=== PATIENT | male | born 1980 | race American Indian/Alaskan Native ===

== ENCOUNTER 2016-08-07 01:37 | Emergency (ER) | payer SELFPAY ==
[2016-08-07] MEDS ORDERED: CATAPRES ONE ×2 (02:22→05:39)
[2016-08-07] MEDS ORDERED: CATAPRES PO ONE ×2 (02:28→05:45)
[2016-08-07 03:19] LABS: Basophils % (Auto) 0.8 % (0.0-1.8); Eosinophils % (Auto) 0.7 % (0.0-4.3); Hematocrit 42.6 % (35.5-45.6); Hemoglobin 14.3 gm/dl (11.8-15.2); Mean Corpuscular HGB Conc 34 % (32-34); Mean Corpuscular Hemoglobin 33 pg (28-32); Mean Corpuscular Volume 97 fl (84-94); Platelet Count 259 K/mm3 (140-440); Red Blood Count 4.38 M/mm3 (3.65-5.03); Red Cell Distribution Width 12.5 % (13.2-15.2); White Blood Count 6.1 K/mm3 (4.5-11.0)
[2016-08-07 03:29] LABS: INR 1.02 (0.87-1.13)
[2016-08-07 03:30] LABS: Partial Thromboplastin Time 30.2 Sec. (24.2-36.6)
[2016-08-07 03:36] LABS: Anion Gap 19 mmol/L; Blood Urea Nitrogen 15 mg/dL (9-20); Calcium 9.1 mg/dL (8.4-10.2); Carbon Dioxide 24 mmol/L (22-30); Chloride 101.7 mmol/L (98-107); Glucose 127 mg/dL (75-100); Sodium 142 mmol/L (137-145)
[2016-08-07 03:51] LABS: Potassium 2.9 mmol/L (3.6-5.0)
[2016-08-07 05:32] VITALS: BP 186/128
--- NOTE | 2016-08-07 19:40 | ED Elopement Review ---
ED Pt Elopement review - Results review Lab results: Laboratory Tests 08/07/16 08/07/16 08/07/16 02:47 02:47 02:47 WBC 6.1 RBC 4.38 Hgb 14.3 Hct 42.6 MCV 97 H MCH 33 H MCHC 34 RDW 12.5 L Plt Count 259 Lymph % (Auto) 29.0 Nolan % (Auto) 9.2 H Eos % (Auto) 0.7 Baso % (Auto) 0.8 Lymph # 1.8 Nolan # 0.6 Eos # 0.0 Baso # 0.1 Seg Neutrophils % 60.3 Seg Neutrophils # 3.7 PT 13.3 INR 1.02 APTT 30.2 Sodium 142 Potassium 2.9 L* Chloride 101.7 Carbon Dioxide 24 Anion Gap 19 BUN 15 Creatinine 1.2 Estimated GFR > 60 BUN/Creatinine Ratio 12.50 Glucose 127 H Calcium 9.1 Troponin T 0.014 08/07/16 08/07/16 05:41 08:32 WBC RBC Hgb Hct MCV MCH MCHC RDW Plt Count Lymph % (Auto) Nolan % (Auto) Eos % (Auto) Baso % (Auto) Lymph # Nolan # Eos # Baso # Seg Neutrophils % Seg Neutrophils # PT INR APTT Sodium Potassium Chloride Carbon Dioxide Anion Gap BUN Creatinine Estimated GFR BUN/Creatinine Ratio Glucose Calcium Troponin T < 0.010 < 0.010 - Call Back decision Pt Call Back Decision: Call pt to return to ED [facility] (hypokalemia, abn EKG)
== END 2016-08-07 09:04 | disposition left against medical advice (07) ==
LOC: ED 01:37
DX: M79.89 Other specified soft tissue disorders (principal); Z53.21 Procedure and treatment not carried out due to patient leaving prior to being seen by health care provider
CPT/HCPCS: 36415; 80048; 84484; 85025; 85610; 85730; 93005; 93010

== ENCOUNTER 2018-09-11 20:39 | Inpatient (IN) | payer SELFPAY ==
[2018-09-11] MEDS ORDERED: ADRENALIN ONE (20:40)
[2018-09-11] MEDS ORDERED: CALCIUM CHLORIDE IV ONE (20:40)
[2018-09-11] MEDS ORDERED: MAGNESIUM SULFATE 2GM/50ML 2 GM/50 ML BAG IV ONE ×2 (20:52→21:50)
[2018-09-11] MEDS ORDERED: NACL 0.9% 1000 ML 2,000 ML ONE (21:03)
[2018-09-11] MEDS ORDERED: LEVOPHED DRIP 4 MG/NS 250 ML 4 MG/250 ML BAG IV ONE (21:15)
--- NOTE | 2018-09-11 21:35 | Emergency Department Report ---
ED CPR HPI - General Chief Complaint: Cardiac Arrest/CPR Stated Complaint: CARDIAC ARREST Time Seen by Provider: 09/11/18 21:21 Source: EMS (verbal report received from EMS.ems notes not available at time of chart dictation) Mode of arrival: Stretcher Limitations: Altered Mental Status - History of Present Illness Initial Comments: This is a 38-year-old gentleman. The patient is not known to this provider previously. Do not know if he has any past medical history. The patient is brought to the hospital by emergency medical services for cardiac arrest. Apparently, EMS was contacted for "seizure." EMS reports the patient arrested in the field in front of them. They reports his initial rhythm was V. fib. They report shocking the patient's 1, 200 J, and sucking him again, 300 J, then subsequently placed the patient on pacer pads. As per report from emergency medical services, prior to arrival to the emergency room, pacer patch was discontinued, and the patient reportedly lost pulses. His initial rhythm upon presentation is pulseless electrical activity. Patient receives high-quality CPR for a prolonged period of time in the emergency room. He does not develop a shockable rhythm, but pulses are obtained. Patient lost pulses multiple times in the emergency room. After prolonged and aggressive resuscitation measures, pulses are reobtained. Post resuscitation EKG shows a left bundle branch block, without prior for comparison, and after 2 A of sodium bicarbonate, QRS duration shortened. The patient is currently in a coma, on norepinephrine with IV fluids, and has pulses. This hospital does not have a postarrest hypothermia protocol. The EKGs are transmitted to our boiler fitter on-call, Dr. Neva Cruz, who has reviewed the EKGs and indicates the EKGs do not meet STEMI criteria. The patient is currently in CAT scan at this time, to exclude intracranial hemorrhage. The aforementioned weatherization and housing inspector requests callback once CT scans have resulted. The patient is accompanied by his fiance, and a friend. Reportedly, he does not have any blood relatives in [place], and reportedly, his nearest relative is in [place]. Complaint: collapsed during activity -: minute(s) Place: home Number of Shocks Delivered: 2 Initial Findings in the Field: VTACH/VFIB Treatments Prior to Arrival: intubation, chest compressions, defribrillated shocks # - Related Data Allergies Allergy/AdvReac Type Severity Reaction Status Date / Time No Known Allergies Allergy Verified 07/17/16 21:38 ED Review of Systems ROS: Stated complaint: CARDIAC ARREST Other details as noted in HPI Comment: Unobtainable due to pts medical conditions ED Past Medical Hx - Past Medical History Hx Hypertension: Yes Hx Diabetes: Yes Additional medical history: CAD. obesity - Surgical History Additional Surgical History: Stent - Social History Smoking Status: Never Smoker Substance Use Type: None ED Physical Exam - General Limitations: Altered Mental Status, Other (intubated, nonverbal, GCS of 3) General appearance: obtunded - Head Head exam: Present: atraumatic, normocephalic - Eye Eye exam: Present: other (pupils dilated and do not react to light). Absent: normal appearance - ENT ENT exam: Present: normal orophraynx, normal external ear exam, other (endotracheal tube noted in the oropharynx) - Neck Neck exam: Present: normal inspection - Respiratory Respiratory exam: Present: decreased breath sounds, other (no breath sounds and was mechanical ventilation is applied.). Absent: normal lung sounds bilaterally - Cardiovascular Cardiovascular Exam: Present: regular rate (bradycardic, normal heart rate, occasionally pulseless), bradycardia, tachycardia, other (thready pulses noted). Absent: irregular rhythm, systolic murmur, diastolic murmur - GI/Abdominal GI/Abdominal exam: Present: soft. Absent: distended, tenderness, guarding, rebound, rigid, pulsatile mass - Rectal Rectal exam: Present: normal inspection - exam: Present: normal inspection - Extremities Exam Extremities exam: Present: normal inspection - Back Exam Back exam: Present: normal inspection - Neurological Exam Neurological exam: Present: altered, other (gcs 3 non verbale) - Psychiatric Psychiatric exam: Present: other (non verbal) - Skin Skin exam: Present: dry ED Course Vital Signs 09/11/18 09/11/18 09/11/18 22:00 22:01 22:23 Pulse Rate 57 L 60 60 Respiratory 14 Rate Blood Pressure 160/112 160/103 154/102 O2 Sat by Pulse 100 100 Oximetry 09/11/18 09/11/18 23:00 23:36 Pulse Rate Respiratory 13 Rate Blood Pressure 151/106 O2 Sat by Pulse 98 Oximetry - Reevaluation(s) Reevaluation #1: 09/11/18 21:48 Differential diagnosis, including not limited to: Intracranial injury, acute coronary syndrome, toxic channelopathy, intrinsic arrhythmia, electrolyte derangement Assessment and plan: 38-year-old gentleman status post out of hospital V. fib arrest, with multiple episodes of loss of pulses. Patient now on norepinephrine infusion, with pulses, and in a coma, with a GCS of 3. Does not have any living relatives in [place] or physically present in the emergency room. Extensive discussion had with fiance and friend. Explained that patient likely has poor neurologic prognosis, and have strongly advised that living relatives present to [place] as soon as possible. In the meantime, we will continue to treat the patient supportively with fluids, norepinephrine infusion, and maintain his hemodynamics. This hospital does not have a post arrest hypothermia protocol. Patient at this point in time in my opinion is too labile and unstable for transfer. Cardiology has been consulted, we will discuss with critical care. The patient had difficult peripheral venous access during his arrest, therefore, an emergent nonsterile central line is placed emergently to obtain IV access. I recommended this line be discontinued within the next 24 hours. We will defer to the inpatient team to further address this. Initial endotracheal tube was noted to be placed somewhat deep, therefore, tube was retracted 3.5 cm at my direction by respiratory therapy. Reevaluation #2: 09/11/18 21:53 Initial lactic acidosis reviewed and appreciated, likely secondary to poor global hypoperfusion. I do not suspect invasive bacterial illness at this time. Reevaluation #3: 09/11/18 23:[address] scan of the cervical spine negative for traumatic disease. Cervical collar discontinued. Noncontrast CT scan of the brain negative for bleed, although there is significant effacement of the sánchez-white matter junction. This suggests a severe anoxic brain injury. Patient having myoclonic jerks, which supports thi s. Cardiology, Dr. Cruz, has recommended amiodarone infusion. Discussed with critical care physician, Dr. Martir Lu, who agrees with placement into the intensive care unit. Again, this hospital does not have a postarrest hypothermia protocol. Hospital physician, Dr. Lu to admit the patient to the medical service. Neurologic prognosis quite poor. Lactic acidosis is improving, repeat lactic acid is 5. Elevated troponin reviewed and appreciated. I suspect this is a type II troponin leak Reevaluation #4: 09/11/18 23:49 Case presented to critical care physician, Dr. Mary Paulson, who agrees with placement into the intensive care unit. - Central Line Placement Right Femoral Consent Obtained: emergent situation Time Out Performed: No (emergent) Patient Placed on Monitor/Pulse Ox: Yes Prep: mask, gown Ultrasound Used for Placement: Yes Central Line Lumen Inserted: triple Bloods Obtained for Lab: Yes Central Line Position: good blood return, all ports aspirated, flus, sutured in place with 2-0 Dressing Applied: Tegaderm Patient Tolerated Procedure: no complications Complications: none - EJ/Peripheral Line Neck R Time Out Performed: No (emergent) Indications: nurses unable to establis Skin Cleansed in Sterile Fashion: Yes Size: 18 Dressing Placed: Tegaderm Patient Tolerated Procedure: other (initial line infiltarted, second line placed and then dislodged) ED Medical Decision Making - Lab Data Result diagrams: 09/11/18 22:21 09/11/18 22:21 Lab Results 09/11/18 09/11/18 09/11/18 Range/Units 21:23 21:23 21: WBC 10.8 (4.5-11.0) K/mm3 RBC 3.27 L (3.65-5.03) M/mm3 Hgb 10.9 L (11.8-15.2) gm/dl Hct 33.3 L (35.5-45.6) % MCV 102 H (84-94) fl MCH 33 H (28-32) pg MCHC 33 (32-34) % RDW 12.9 L (13.2-15.2) % PT 15.7 H (12.2-14.9) Sec. INR 1.17 H (0.87-1.13) Troponin T 0.041 H (0.00-0.029) ng/mL Salicylates (2.8-20.0) mg/dL Acetaminophen (10.0-30.0) ug/mL Plasma/Serum Alcohol (0-0.07) % Blood Type 09/11/18 09/11/18 09/11/18 Range/Units 21:23 21:23 21: WBC (4.5-11.0) K/mm3 RBC (3.65-5.03) M/mm3 Hgb (11.8-15.2) gm/dl Hct (35.5-45.6) % MCV (84-94) fl MCH (28-32) pg MCHC (32-34) % RDW (13.2-15.2) % PT (12.2-14.9) Sec. INR (0.87-1.13) Troponin T (0.00-0.029) ng/mL Salicylates < 0.3 L (2.8-20.0) mg/dL Acetaminophen < 5.0 L (10.0-30.0) ug/mL Plasma/Serum Alcohol < 0.01 (0-0.07) % Blood Type 09/11/18 Range/Units 21:23 WBC (4.5-11.0) K/mm3 RBC (3.65-5.03) M/mm3 Hgb (11.8-15.2) gm/dl Hct (35.5-45.6) % MCV (84-94) fl MCH (28-32) pg MCHC (32-34) % RDW (13.2-15.2) % PT (12.2-14.9) Sec. INR (0.87-1.13) Troponin T (0.00-0.029) ng/mL Salicylates (2.8-20.0) mg/dL Acetaminophen (10.0-30.0) ug/mL Plasma/Serum Alcohol (0-0.07) % Blood Type B POSITIVE - EKG Data -: EKG Interpreted by Nh - EKG Data 09/11/18 21:52 EKG #1 shows a tachycardic rhythm, wide complex, sinus, borderline left axis deviation, left bundle branch block, intraventricular conduction delay, this is an abnormal EKG, this EKG does not meet ST elevation myocardial infarction criteria. EKG #2 shows a sinus rhythm, 78 beats minute, left axis deviation, borderline left anterior fascicular block, poor R wave progression, abnormal EKG, not ST elevation myocardial infarction. EKG #3 appears to be unchanged from EKG #2, with the exception that QTC appears to be narrowing. - Radiology Data Radiology results: report reviewed, image reviewed Print Report Referring Physician: ARON SPENCER Patient Name: SHAZIA GAONA Date of : 1980 Sex: Male Report Date: 2018-09-11 Report Status: Finalized Findings [facility] [address] [place] [address] XRay Report Signed Patient: SHAZIA GAONA MR#: [id number] : 1980 Acct:[id number] Age/Sex: 38 / M ADM Date: 09/11/18 Loc: ED Attending Dr: Ordering Physician: ARON SPENCER MD Date of Service: 09/11/18 Procedure(s): XR chest 1V ap Accession Number(s): [id number] cc: ARON SPENCER MD Fluoro Time In Minutes: PROCEDURE: XR CHEST 1V AP TECHNIQUE: Chest single AP HISTORY: CARDIAC ARREST/ETT TUBE PLACEMENT COMPARISONS: FINDINGS: Cardiac silhouette is moderately enlarged. There is an endotracheal tube tip is just at the lawrence. Consider repositioning approximately 2 cm. No acute infiltrate identified. Cardiac silhouette appears enlarged. No pleural effusion identified. IMPRESSION: ET tube is just at the lawrence. Consider repositioning Otherwise no acute findings. This document is electronically signed by Louie Luther MD., Sep 11 2018 09:52:08 PM ET Transcribed By: REBEKA Dictated By: CROW LUTHER MD Electronically Authenticated By: CROW LUTHER MD Signed Date/Time: 09/11/18 6184 Critical Care Time: Yes Critical care time in (mins) excluding proc time.: 120 Critical care attestation.: If time is entered above; I have spent that time in minutes in the direct care of this critically ill patient, excluding procedure time. ED Disposition Clinical Impression: Cardiac arrest, Anoxic brain injury Disposition: - OP ADMIT IP TO THIS HOSP Is pt being admited?: Yes Condition: Critical Referrals: ALEXA MARIE MD [Primary Care Provider] - 3-5 Days
[2018-09-11 21:44] LABS: INR 1.17 (0.87-1.13)
[2018-09-11] MEDS ORDERED: CALCIUM GLUCONATE 2,000 MG in NACL 0.9% 100 ML IV ONE (21:50)
--- NOTE | 2018-09-11 21:54 | XRay Report ---
PROCEDURE: XR CHEST 1V AP TECHNIQUE: Chest single AP HISTORY: CARDIAC ARREST/ETT TUBE PLACEMENT COMPARISONS: FINDINGS: Cardiac silhouette is moderately enlarged. There is an endotracheal tube tip is just at the lawrence. C onsider repositioning approximately 2 cm. No acute infiltrate identified. Cardiac silhouette appears enlarged. No pleural effusion identified. IMPRESSION: ET tube is just at the lawrence. Consider repositioning Otherwise no acute findings. This document is electronically signed by Louie Castellon MD., Sep 11 2018 09:52:08 PM ET
[2018-09-11] MEDS ORDERED: VASELINE LIP THERAPY TP PRN (22:02)
[2018-09-11] MEDS ORDERED: ARTIFICIAL TEARS OPHTH OINT OU PRN (22:02)
[2018-09-11] MEDS ORDERED: SUBLIMAZE IV PRN (22:02)
[2018-09-11] MEDS ORDERED: NACL 0.9% 1000 ML 1,000 ML IV ONE (22:03)
[2018-09-11] MEDS ORDERED: NACL 0.9% 1000 ML 2,000 ML IV ONE (22:03)
[2018-09-11 22:07] LABS: Hematocrit TNR % (35.5-45.6); Hemoglobin TNR gm/dl (11.8-15.2); Mean Corpuscular Volume TNR fl (84-94); Red Blood Count TNR M/mm3 (3.65-5.03)
[2018-09-11 22:08] LABS: Mean Corpuscular HGB Conc TNR % (32-34); Mean Platelet Volume TNR fl (6-12); Red Cell Distribution Width TNR % (13.2-15.2)
[2018-09-11 22:09] LABS: Platelet Count TNR K/mm3 (140-440)
[2018-09-11 22:43] LABS: Hematocrit 33.4 % (35.5-45.6); Hemoglobin 11.1 gm/dl (11.8-15.2); Mean Corpuscular HGB Conc 33 % (32-34); Mean Corpuscular Volume 100 fl (84-94); Red Blood Count 3.35 M/mm3 (3.65-5.03); Red Cell Distribution Width 12.8 % (13.2-15.2)
[2018-09-11 22:51] LABS: Calcium 10.3 mg/dL (8.4-10.2)
[2018-09-11 22:53] LABS: Platelet Count 160 K/mm3 (140-440)
--- NOTE | 2018-09-11 22:54 | XRay Report ---
PROCEDURE: XR CHEST 1V AP TECHNIQUE: Portable AP supine view of the chest was obtained. HISTORY: ett readjustment COMPARISONS: Prior chest x-ray 09/11/2018 9020 p.m. FINDINGS: Endotracheal tube has been repositioned. The tip now lies 5.9 cm above the lawrence. Lungs are clear. The heart is magnified due to projection, I suspect upper normal size to mildly enlarged. No interval change. Pulmonary vasculature is not distended. IMPRESSION: Endotracheal tube repositioning as described above. Lungs are clear. Heart size upper normal to mildly enlarged.. This document is electronically signed by Yamil Saez MD., Sep 11 2018 10:51:45 PM ET
--- NOTE | 2018-09-11 22:55 | XRay Report ---
PROCEDURE: XR ABDOMEN 1V AP TECHNIQUE: Portable supine AP abdomen HISTORY: Evaluate Dobbhoff placement COMPARISONS: FINDINGS: Dobbhoff feeding tube is not visualized. An endotracheal tube is visualized. This is directed into th e left side of the stomach although the sidehole marker is located still 1 cm above the gastroesophag eal junction. Tube should be advanced 5-10 cm for improved positioning.. Nonspecific bowel gas pattern. No evidence of bowel obstruction. No abnormal masses are seen. There a ppears to be mild curvature of the thoracic spine directed to the right. IMPRESSION: No evidence of a Dobbhoff feeding tube. An NG tube is in place as described and should be advanced ap proximately 5-10 cm per true positioning. No acute abnormalities are identified.. This document is electronically signed by Yamil Saez MD., Sep 11 2018 10:53:30 PM ET
[2018-09-11 23:00] LABS: INR 1.17 (0.87-1.13)
[2018-09-11] MEDS ORDERED: fentaNYL DRIP Premix 2,000 MCG/100 ML BAG IV SCH (23:00)
[2018-09-11] MEDS ORDERED: LEVOPHED DRIP 4 MG/NS 250 ML 4 MG/250 ML BAG IV SCH (23:00)
--- NOTE | 2018-09-11 23:12 | Cat Scan Report ---
PROCEDURE: CT cervical spine without contrast. TECHNIQUE: Computerized tomography of the cervical spine was performed from the skull base to T1 wit hout contrast material. CT DOSE LENGTH PRODUCT: Not provided mGycm HISTORY: post arrest ams COMPARISONS: None. FINDINGS: The cervical vertebrae have normal height and alignment. There are no fractures. There is no subluxat ion. The disc spaces are well-maintained. The spinal canal is widely patent. The facet joints appear normal. The neural foramina are widely patent. There is an endotracheal tube in place. IMPRESSION: No evidence of acute cervical spine injury. This document is electronically signed by Mike Mehta MD., Sep 11 2018 11:10:09 PM ET
--- NOTE | 2018-09-11 23:28 | History and Physical Report ---
History of Present Illness Date of examination: 09/11/18 History of present illness: 38-year-old man with a history of hypertension, diabetes, heart failure with EF of 25-30% per the , coronary artery disease, last stent was placed in June at [facility] was brought to the emergency room for evaluation. She states that patient went to the store, came back home and was playing with her dog, he suddenly had a seizure and then passed out. She called 911, started CPR on until they arrived. EMS found patient in V. fib, shocked x 2, he was brought to the emergency room where he had a prolonged resuscitation efforts. Review of system is unobtainable. Patient is currently having myoclonic jerks, started only Levophed, fentanyl drip PAST MEDICAL HISTORY:hypertension, diabetes, heart failure with EF of 25-30% per the , coronary artery disease PAST SURGICAL HISTORY: None SOCIAL HISTORY: Denies alcohol, drugs, tobacco FAMILY HISTORY: Hypertension Medications and Allergies Allergies Allergy/AdvReac Type Severity Reaction Status Date / Time No Known Allergies Allergy Verified 07/17/16 21:38 Active Meds: Active Medications Fentanyl (Sublimaze) 50 mcg IV Q10MIN PRN PRN Reason: ANALGESIA Hydrophilic Ointment (Vaseline Lip Therapy) 1 applic TP Q2HR PRN PRN Reason: Dry Lips Fentanyl Citrate (Fentanyl Drip Premix) 2,000 mcg in 100 mls @ 5.67 mls/hr IV TITR LATOYA; Protocol Last Admin: 09/11/18 22:38 Dose: 1 mcg/kg/hr, 5.67 mls/hr Documented by: Norepinephrine (Levophed Drip 4 Mg/Ns 250 Ml) 4 mg in 250 mls @ 7.5 mls/hr IV TITR LATOYA; Protocol Last Admin: 09/11/18 21:15 Dose: 2 mcg/min, 7.5 mls/hr Documented by: Amiodarone HCl 900 mg/ (Dextrose) 500 mls @ 33.333 mls/hr IV DIRECT LATOYA; Protocol Multi-Ingred Cream/Lotion/Oil/Oint (Artificial Tears Ophth Oint) 1 applic OU Q4HR PRN PRN Reason: Dry Eye(s) Exam - Physical Exam Narrative exam: General Apperance: The patient lying in bed, breathing comfortable, intubated HEENT: Normocephalic, atraumatic. Pupils equally round and reactive to light, unable to do EOM, no sclericterus or JVD or thyromegaly or nodule. , no carotid bruit, mucous membranes moist, unable to examine oral cavity, ET tube in place Heart: S1-S2, regular is rhythm Lungs: Clear to auscultation bilaterally, breathing comfortable Abdomen: Positive bowel sounds, soft, nondistended, no organomegaly Extremities: No edema cyanosis clubbing Skin: no rash, nodule, warm and dry Neuro: Sedated, myoclonic jerks - Constitutional Vitals: Temp Pulse Resp BP Pulse Ox 60 154/102 100 09/11/18 22:23 09/11/18 22:23 09/11/18 22:23 Results - Labs CBC & Chem 7: 09/11/18 22:21 09/11/18 22:21 Labs: Abnormal lab results 09/11/18 09/11/18 09/11/18 Range/Units 20:53 21:23 21:23 RBC (3.65-5.03) M/mm3 Hgb (11.8-15.2) gm/dl Hct (35.5-45.6) % MCV (84-94) fl MCH (28-32) pg RDW (13.2-15.2) % PT 15.7 H (12.2-14.9) Sec. INR 1.17 H (0.87-1.13) POC ABG pH (7.35-7.45) POC ABG pCO2 (35-45) BUN (9-20) mg/dL Creatinine (0.8-1.5) mg/dL Glucose (75-100) mg/dL POC Glucose 185 H (70-105) Lactic Acid 9.10 H* (0.7-2.0) mmol/L Calcium (8.4-10.2) mg/dL Magnesium (1.7-2.3) mg/dL Total Creatine Kinase (55-170) units/L Troponin T (0.00-0.029) ng/mL Salicylates (2.8-20.0) mg/dL Acetaminophen (10.0-30.0) ug/mL 09/11/18 09/11/18 09/11/18 Range/Units 21:23 21:23 21:23 RBC (3.65-5.03) M/mm3 Hgb (11.8-15.2) gm/dl Hct (35.5-45.6) % MCV (84-94) fl MCH (28-32) pg RDW (13.2-15.2) % PT (12.2-14.9) Sec. INR (0.87-1.13) POC ABG pH (7.35-7.45) POC ABG pCO2 (35-45) BUN (9-20) mg/dL Creatinine (0.8-1.5) mg/dL Glucose (75-100) mg/dL POC Glucose (70-105) Lactic Acid (0.7-2.0) mmol/L Calcium (8.4-10.2) mg/dL Magnesium 2.80 H (1.7-2.3) mg/dL Total Creatine Kinase 357 H (55-170) units/L Troponin T 0.041 H (0.00-0.029) ng/mL Salicylates < 0.3 L (2.8-20.0) mg/dL Acetaminophen < 5.0 L (10.0-30.0) ug/mL 09/11/18 09/11/18 09/11/18 Range/Units 22:21 22:21 22:21 RBC 3.35 L (3.65-5.03) M/mm3 Hgb 11.1 L (11.8-15.2) gm/dl Hct 33.4 L (35.5-45.6) % MCV 100 H (84-94) fl MCH 33 H (28-32) pg RDW 12.8 L (13.2-15.2) % PT (12.2-14.9) Sec. INR (0.87-1.13) POC ABG pH (7.35-7.45) POC ABG pCO2 (35-45) BUN 23 H (9-20) mg/dL Creatinine 1.9 H (0.8-1.5) mg/dL Glucose 270 H (75-100) mg/dL POC Glucose (70-105) Lactic Acid 5.80 H* (0.7-2.0) mmol/L Calcium 10.3 H (8.4-10.2) mg/dL Magnesium (1.7-2.3) mg/dL Total Creatine Kinase (55-170) units/L Troponin T 0.292 H* D (0.00-0.029) ng/mL Salicylates (2.8-20.0) mg/dL Acetaminophen (10.0-30.0) ug/mL 09/11/18 09/11/18 09/11/18 Range/Units 22:21 22:21 22:30 RBC (3.65-5.03) M/mm3 Hgb (11.8-15.2) gm/dl Hct (35.5-45.6) % MCV (84-94) fl MCH (28-32) pg RDW (13.2-15.2) % PT 15.7 H (12.2-14.9) Sec. INR 1.17 H (0.87-1.13) POC ABG pH 7.520 H (7.35-7.45) POC ABG pCO2 33.5 L (35-45) BUN (9-20) mg/dL Creatinine (0.8-1.5) mg/dL Glucose (75-100) mg/dL POC Glucose (70-105) Lactic Acid (0.7-2.0) mmol/L Calcium (8.4-10.2) mg/dL Magnesium (1.7-2.3) mg/dL Total Creatine Kinase (55-170) units/L Troponin T (0.00-0.029) ng/mL Salicylates (2.8-20.0) mg/dL Acetaminophen < 5.0 L (10.0-30.0) ug/mL 09/11/18 Range/Units 23:00 RBC (3.65-5.03) M/mm3 Hgb (11.8-15.2) gm/dl Hct (35.5-45.6) % MCV (84-94) fl MCH (28-32) pg RDW (13.2-15.2) % PT (12.2-14.9) Sec. INR (0.87-1.13) POC ABG pH (7.35-7.45) POC ABG pCO2 (35-45) BUN (9-20) mg/dL Creatinine (0.8-1.5) mg/dL Glucose (75-100) mg/dL POC Glucose 296 H (70-105) Lactic Acid (0.7-2.0) mmol/L Calcium (8.4-10.2) mg/dL Magnesium (1.7-2.3) mg/dL Total Creatine Kinase (55-170) units/L Troponin T (0.00-0.029) ng/mL Salicylates (2.8-20.0) mg/dL Acetaminophen (10.0-30.0) ug/mL - Imaging and Cardiology EKG: image reviewed Chest x-ray: report reviewed CT Scan - head: report reviewed Assessment and Plan Assessment Acute respiratory failure Cardiac arrest V. fib CHF, stable Coronary artery disease Renal insufficiency, probably chronic Diabetes complicated by neuropathy Plan Admit to medicine Continue amiodarone drip, levophed drip Change fentanyl drip to Versed drip Check cardiac enzymes, echo, consult cardiology Consult critical care, start asa Check fingersticks, initiate insulin sliding scale Elevated lactic acid, no sign of infection DVT prophylaxis Prognosis is poor, discussed with and cousin at bedside
[2018-09-11 23:41] LABS: Chol/HDL Ratio 5.3 %
[2018-09-11] MEDS ORDERED: CORDARONE 900 MG in D5W 482 ML IV SCH (23:45)
[2018-09-12] MEDS ORDERED: VERSED IV PRN (00:19)
[2018-09-12] MEDS ORDERED: SODIUM CHLORIDE FLUSH SYRINGE 10 ML IV PRN (00:21)
[2018-09-12] MEDS ORDERED: TYLENOL PO PRN (00:21)
[2018-09-12] MEDS ORDERED: ZOFRAN IV PRN (00:21)
[2018-09-12] MEDS ORDERED: D50W (25GM) Syringe IV PRN (00:21)
--- NOTE | 2018-09-12 00:29 | Cat Scan Report ---
PROCEDURE: CT HEAD/BRAIN WO CON TECHNIQUE: HISTORY: post arrest ams COMPARISONS: FINDINGS: CT head without contrast there is a focal hypodensity seen adjacent to the left caudate head signific ance uncertain could reflect a dilated perivascular space or remote lacunar infarct. There is generalized loss of sánchez-white matter differentiation and sulci appear effaced. No evidence for midline shift. No acute intra or extra-axial hemorrhage identified. Bony calvarium appears intact. IMPRESSION: Some loss of sánchez-white matter differentiation findings suggestive of possible anoxic brain injury fo llow-up MRI could be obtained as the patient's condition allows. This document is electronically signed by Louie Castellon MD., Sep 11 2018 10:02:25 PM ET
[2018-09-12] MEDS ORDERED: MIDAZOLAM 100 MG in NACL 0.9% 80 ML IV SCH (01:00)
[2018-09-12] MEDS ORDERED: ADRENALIN ONE (02:15)
[2018-09-12 03:26] VITALS: BP 159/69
--- NOTE | 2018-09-12 04:44 | Event Note ---
Date: 09/12/18 CODE BLUE Initial rhythm, PEA Patient responded to resuscitation, there was ROSC Fianc at bedside during the code Patient coded again Resuscitation efforts, there was no ROSC Time of 3937
[2018-09-12] MEDS ORDERED: HumaLOG SUB-Q SCH (06:00)
[2018-09-12] MEDS ORDERED: SODIUM CHLORIDE FLUSH SYRINGE 10 ML IV SCH (10:00)
[2018-09-12] MEDS ORDERED: BABY ASPIRIN PO SCH (10:00)
[2018-09-12] MEDS ORDERED: LOVENOX SUB-Q SCH ×2 (10:00→11:00)
[2018-09-12] MEDS ORDERED: NACL 0.9% 1000 ML ONE (14:04)
--- NOTE | 2018-12-30 21:20 | Discharge Summary ---
SUMMARY DISCHARGE DIAGNOSES: 1. . 2. Acute respiratory failure. 3. Cardiac arrest. 4. Ventricular fibrillation. 5. Congestive heart failure. 6. Coronary artery disease. 7. Renal insufficiency. 8. Diabetes complicated by neuropathy. HOSPITAL COURSE: This is a 38-year-old man with a history of hypertension, diabetes, CHF with EF of 25-30%, coronary artery disease, was brought to the Emergency Room because he suddenly had a seizure at home and passed out. CPR was started by family until EMS arrived and he was shocked twice for VFib. In the Emergency Room, he had prolonged resuscitation efforts. The patient was having myoclonic jerks in the Emergency Room and started on Levophed and fentanyl drip. He was started also on amiodarone drip. The patient coded several times. Please refer to H and P for details. Time of 0419. JOB# [id number] AES/NTS
== END 2018-09-12 04:30 | DRG 208 ==
LOC: ED 20:39 → CC1 23:28
PROVIDERS: ADMIT Internal Medicine; ATTEND Internal Medicine
PROC: 5A1935Z Respiratory Ventilation, Less than 24 Consecutive Hours (ICD-10-PCS; 2018-09-11)
PROC: 0BH17EZ Insertion of Endotracheal Airway into Trachea, Via Natural or Artificial Opening (ICD-10-PCS; 2018-09-11)
PROC: 06HY33Z Insertion of Infusion Device into Lower Vein, Percutaneous Approach (ICD-10-PCS; 2018-09-11)
PROC: B54BZZA Ultrasonography of Right Lower Extremity Veins, Guidance (ICD-10-PCS; 2018-09-11)
PROC: 4A033R1 Measurement of Arterial Saturation, Peripheral, Percutaneous Approach (ICD-10-PCS; principal; 2018-09-12)
PROC: 5A1935Z Respiratory Ventilation, Less than 24 Consecutive Hours (ICD-10-PCS; 2018-09-12)
DX: J96.00 Acute respiratory failure, unspecified whether with hypoxia or hypercapnia (principal); I13.0 Hypertensive heart and chronic kidney disease with heart failure and stage 1 through stage 4 chronic kidney disease, or unspecified chronic kidney disease; I46.9 Cardiac arrest, cause unspecified; I50.9 Heart failure, unspecified; I25.10 Atherosclerotic heart disease of native coronary artery without angina pectoris; I49.01 Ventricular fibrillation; N18.9 Chronic kidney disease, unspecified; E11.22 Type 2 diabetes mellitus with diabetic chronic kidney disease; E11.40 Type 2 diabetes mellitus with diabetic neuropathy, unspecified; E66.9 Obesity, unspecified; S06.890A Other specified intracranial injury without loss of consciousness, initial encounter; Y93.89 Activity, other specified; Z82.49 Family history of ischemic heart disease and other diseases of the circulatory system; Z68.33 Body mass index [BMI] 33.0-33.9, adult; Y92.89 Other specified places as the place of occurrence of the external cause; Y99.8 Other external cause status
CPT/HCPCS: 36415; 36600; 70450; 71045; 72125; 74018; 80048; 80061; 80320; 82140; 82550; 82803; 82962; 83735; 84439; 84443; 84484; 85027; 85610; 86850; 86900; 86901; 92950; 93005; 93010; 94002; 99292; G0378; G0480; J0171; J0282; J0610; J2250; J3010; J3475; J7030; J7060